=== PATIENT | male | born 2000 | race Caucasian/White ===

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

== ENCOUNTER 2021-01-02 15:53 | Emergency (ER) | payer BC, OTHER ==
[2021-01-02 16:14] VITALS: BP 118/70; PULSE 69; TEMP 98.2; BMI 19.0
== END 2021-01-02 16:17 | disposition home or self-care (01) ==
LOC: FER 15:53
DX: S61.012A Laceration without foreign body of left thumb without damage to nail, initial encounter (principal)
CPT/HCPCS: 99283-25